=== PATIENT | female | born 1965 | race Two or more races ===

== ENCOUNTER 2023-04-25 11:42 | Emergency (ER) | payer OTHER ==
[~2023-04-25] VITALS: Ht 154.9 cm; Wt 93.4 kg
[~2023-04-25 11:42] MED LIST: LOSARTAN POTAS100 MG; METFORMIN HCL500 MG; TOPROL XL100 M1
[2023-04-25] MEDS ORDERED: OLMESARTAN-HCT1 EACH PO (11:56)
== END 2023-04-25 15:31 | disposition home or self-care (01) ==
LOC: ER 11:42
DX: U07.1 COVID-19 (principal)

== ENCOUNTER 2023-05-16 21:42 | Inpatient (IN) | payer OTHER ==
[~2023-05-16] VITALS: Ht 154.9 cm; Wt 93.4 kg
[~2023-05-16 21:42] MED LIST changes: +OLMESARTAN-HCT1 EACH PO
--- NOTE | 2023-05-16 21:53 | NUR ---
SE RECBE PTE ALERTA Y ORIENTADA X3 LA CUAL REFIERE VENIR POR DOLOR EN CUADRANTE DERECHO DEL ABDOMEN. PTE REFIERE TENER PIEDRAS EN LA VESICULA. SE MIDEN S/V Y SE COLOCA EN AREA DE OBSERVACION.
--- NOTE | 2023-05-17 01:39 | NUR ---
SE RECIBE PTE ALERTA ORIENTADA X3.SE CLAUDIA MUESTRAS DE [facility] ASEPTICAS.SE ADMINISTRAN MEDICAMENTOS JEANE ORDEN MEDICA.SE ORIENTA PTE SOBRE SONOGRAMA ABDOMINAL LA CUAL REFIERE ENTENDER.SE NOTIFICA A PERSONAL DE SONOGRAFIA JAMES.MANEJADO POR JOHNNY MENCHACA.
== END 2023-05-21 18:11 | disposition home or self-care (01) | DRG 418 ==
LOC: ER 21:42 → SURH 05-17 13:41 → SEC-K 05-17 13:41 → SURH 05-17 14:26
PROVIDERS: Surgery; ADMIT Specialist; ATTEND Specialist
PROC: BW40ZZZ Ultrasonography of Abdomen (ICD-10-PCS; 2023-05-17)
PROC: BF53200 Other Imaging of Gallbladder and Bile Ducts using Fluorescing Agent, Indocyanine Green Dye, Intraoperative (ICD-10-PCS; 2023-05-20)
PROC: 0FT44ZZ Resection of Gallbladder, Percutaneous Endoscopic Approach (ICD-10-PCS; principal; 2023-05-20 12:15)
DX: K80.00 Calculus of gallbladder with acute cholecystitis without obstruction (principal); K90.49 Malabsorption due to intolerance, not elsewhere classified; E86.0 Dehydration; E11.9 Type 2 diabetes mellitus without complications; I10 Essential (primary) hypertension; Z79.84 Long term (current) use of oral hypoglycemic drugs

== ENCOUNTER 2023-07-25 10:15 | Emergency (ER) | payer OTHER ==
[~2023-07-25] VITALS: Ht 152.4 cm; Wt 96.2 kg
[2023-07-25] MEDS ORDERED: ROSUVASTATIN CA10 MG (10:27)
[2023-07-25 11:11] LABS: HEMATOCRIT 38.1 % (36.0-45.00); HEMOGLOBIN 12.5 g/dL (12.0-15.00); MEAN CORPUSCULAR HEMOGLOBIN 25.6 pg (27.00-32.0); MEAN CORPUSCULAR HGB CONC 32.8 g/dl (32.0-36.0); PLATELET COUNT 156 K/uL (150-450); RED BLOOD COUNT 4.88 M/uL (4.00-6.00); RED CELL DISTRIBUTION WIDTH 15.3 % (11.5-14.5)
[2023-07-25 11:32] LABS: PH,URINE 5.5 (5.0-8.0); URINE APPEARANCE Clear; URINE BILIRRUBIN Negative (NEGATIVE); URINE BLOOD Negative; URINE COLOR Yellow; URINE GLUCOSE Negative (NEGATIVE); URINE LEUKOCYTE Negative; URINE NITRATE Negative; URINE PROTEIN Negative (NEGATIVE); URINE UROBILINOGEN 0.2 E.U./dl
[2023-07-25 11:34] LABS: URINE BACTERIA 309.9 uL (0.0-1933); URINE EPITHELIAL CELLS 21.1 uL (0.0-38.8); URINE RBC 16.6 uL (0.0-20.8)
[2023-07-25 12:00] LABS: CREATININE SERUM 0.99 mg/dL (0.55-1.02); GFR 57.21; POTASSIUM 4.21 mEq/L (3.5-5.1)
== END 2023-07-25 15:26 | disposition home or self-care (01) ==
LOC: ER 10:15
PROVIDERS: Emergency Medicine
DX: R10.11 Right upper quadrant pain (principal); Z90.49 Acquired absence of other specified parts of digestive tract; I10 Essential (primary) hypertension; E11.8 Type 2 diabetes mellitus with unspecified complications; Z79.84 Long term (current) use of oral hypoglycemic drugs

== ENCOUNTER → 2025-03-24 | Emergency (ER) | payer OTHER ==
[~2025-03-24] VITALS: Ht 152.4 cm; Wt 100.7 kg
[~2025-03-24] MED LIST changes: +ROSUVASTATIN CA10 MG
[2025-03-24 13:46] LABS: BASO % 0.2 % (0.1-1.2); EOS % 3.4 % (0.7-7.0); HEMATOCRIT 44.1 % (34.1-44.9); HEMOGLOBIN 13.5 g/dL (11.2-15.7); LYMPH # 2.84 (1.18-3.74); LYMPH % 31.7 % (19.3-53.1); MEAN CORPUSCULAR HEMOGLOBIN 24.6 pg (25.6-32.2); MONO # 0.66 (0.24-0.82); MONO % 7.4 % (4.7-12.5); PLATELET COUNT 224 K/uL (163-369); RED BLOOD COUNT 5.49 M/uL (3.93-5.22); RED CELL DISTRIBUTION WIDTH 14.1 % (11.6-14.4)
[2025-03-24 13:56] LABS: CALCIUM 9.9 mg/dL (8.5-10.1); CREATININE SERUM 0.94 mg/dL (0.55-1.02); GFR 60.34; POTASSIUM 4.4 mEq/L (3.5-5.1)
== END | disposition home or self-care (01) ==
LOC: ER 11:43
PROVIDERS: General Practice
DX: R07.9 Chest pain, unspecified (principal); E03.8 Other specified hypothyroidism; I10 Essential (primary) hypertension; E11.9 Type 2 diabetes mellitus without complications; Z79.84 Long term (current) use of oral hypoglycemic drugs; B34.9 Viral infection, unspecified